=== PATIENT | female | born 1970 | race Caucasian/White ===

== ENCOUNTER 2017-03-31 05:14 | Emergency (ER) | payer OTHER ==
[~2017-03-31] VITALS: Ht 160 cm; Wt 79.7 kg
[~2017-03-31 05:14] MED LIST: ADVAIR HFA120 INHAL1 IH; ALBUTEROL; AMILORIDE HCL5 MG PO; ASPIR 8181 M1 PO; ATIVAN0.5 MG PO; AZITHROMYCIN250 MG1 PO; B-121000 MC2 PO; BACTRIM,SEPT1 TABLET PO; BENADRYL25 MG PO; BENZTROPINE ME0.5 MG PO; Benadryl PO; CEFTIN500 MG PO; CENTRUM SILVER1 EAC3 PO; CEPHALEXIN500 MG PO; CLONAZEPAM0.5 MG PO; CLONAZEPAM1 MG PO; COGENTIN1 MG PO; DAILY VALUE1 EACH PO; DEPAKOTE ER500 MG PO; DIFLUCAN150 MG PO; DIVALPROEX SOD500 M1 PO; DIVALPROEX SOD500 MG PO; ECONAZOLE NITRA15 GM TP; FISH OIL 1,0001 EA11 PO; FISH OIL500 MG PO; FLONASE16 G1 BOTH NARES; FLUOXETINE HCL20 MG PO; FLUTICASONE PRO16 GM BOTH NARES; GABAPENTIN100 MG PO; GAS-X ULTRA ST180 MG PO; GEODON60 MG PO; GEODON80 MG PO; HALDOL DEC100 MG/1 M IM; HALDOL10 MG PO; HALDOL5 MG PO; HALOPERIDOL10 MG PO; HYDROCHLOROTHIA25 MG PO; HYDROCODON-ACE1 EAC7 PO; Inderal PO; KEFLEX500 MG PO; KLONOPIN0.5 M1 PO; KLONOPIN1 MG PO; LISINOPRIL-HCT1 EACH PO; LITHIUM CARBON300 M1 PO; LITHIUM CARBON300 M2 PO; LITHIUM CARBON300 MG PO; LITHIUM CARBON600 MG PO; LITHOBID300 MG PO; LOPRESSOR25 MG PO; LOVENOX150 MG/1 M SC; LUNESTA1 MG PO; LYRICA50 MG PO; MELATONIN1 MG PO; METOPROLOL SUCC25 MG PO; MOBIC15 MG PO; MOTRIN600 MG PO; MOTRIN800 MG PO; Miralax, Glycolax PO; NABI650T PO; NAPROXEN500 MG PO; NEXIUM20 MG PO; NEXIUM40 MG PO; NYSTATIN15 GM TP; Neurontin PO; OLANZAPINE10 MG PO; OXYBUTYNIN; PANTOPRAZOLE SO40 MG PO; PERCOCET 10-321 EACH PO; PERCOCET 10/1 TABLET PO; PERCOCET 5-3251 EACH PO; PERCOCET 5/31 TABLET PO; PREDNISONE50 MG PO; PROAIR HFA8.5 GM IH; PROTONIX40 MG PO; Percocet 5/325,Endoc PO; QUETIAPINE FUM200 MG PO; SEROQUEL; SEROQUEL PO; SEROQUEL200 MG PO; SEROQUEL300 MG PO; SYMBICORT; SYMBICORT60 INHALAT; SYMBICORT60 INHALAT IH; TERBINAFINE HC250 MG PO; TOPROL XL25 MG PO; TOPROL XL50 MG PO; TRAMADOL HCL50 MG PO; TYLENOL ARTHRI650 MG PO; TYLENOL WITH C1 EACH PO; VENTOLIN HFA18 GM IH; VISTARIL25 M1 PO; XARELTO10 MG PO; XARELTO15 MG PO; XARELTO20 MG PO; ZESTRIL,PRINIVIL5 MG PO; ZIPRASIDONE HCL80 MG PO; ZITHROMAX Z-PA250 MG PO; ZOFRAN4 MG PO; ZOVIRAX5 GM TP; ZYDIS PO; ZYPREXA ZYDIS20 MG PO; ZYPREXA ZYDIS5 MG PO; ZYPREXA10 M1 PO; ZYPREXA10 MG PO; ZYPREXA15 MG PO; ZYPREXA20 MG PO
[2017-03-31 05:57] LABS: HEMATOCRIT 40.7 % (36.0-46.0); MCH 31.1 PG (29.0-34.0); MCHC 33.7 G/DL (30.0-36.0); MCV 92.5 FL (83-99); PLATELET COUNT 302 K/uL (156-360); RBC DIS.WIDTH-CV 12.9 % (11.8-14.6); RBC DIS.WIDTH-SD 43.7 % (39-53); WHITE BLOOD COUNT 11.1 K/uL (4.1-10.2)
[2017-03-31 05:58] LABS: ADD MIUA? NO; BILIRUBIN NEGATIVE; BLOOD NEGATIVE; COLOR COLORLESS ((YELLOW)); GLUCOSE (STRIP) NEGATIVE; KETONES NEGATIVE; LEUKOCYTES NEGATIVE; NITRITE NEGATIVE; PROTEIN (STRIP) NEGATIVE; SPECIFIC GRAVITY 1.002 (1.000-1.030); UCUL ADDED? NO; UROBILINOGEN 0.2 MG/DL (0.2-1.0)
[2017-03-31 06:12] LABS: CHLORIDE 106 mEq/L (99-109); POTASSIUM 3.9 mEq/L (3.7-5.4); SODIUM 139 mEq/L (136-147)
[2017-03-31 06:14] LABS: GLUCOSE 74 mg/dL (70-99)
[2017-03-31 06:15] LABS: ANION GAP 8 MEQ/L (2-14)
[2017-03-31 06:16] LABS: TOTAL BILIRUBIN 0.3 mg/dL (0.0-1.0)
[2017-03-31 06:18] LABS: ALKALINE PHOSPHATASE 102 IU/L (3-129); GFR ESTIMATE (CALCULATED) > 59 mL/min/
[2017-03-31 06:19] LABS: UREA NITROGEN (BUN) 13 mg/dL (9-23)
[2017-03-31 06:26] LABS: QUANTITATIVE HCG < 4.0 MIU/ML
[2017-03-31] MEDS ORDERED: VENTOLIN HFA18 GM IH (07:18)
[2017-03-31 07:36] VITALS: BP 142/102
== END 2017-03-31 07:37 | disposition home or self-care (01) ==
LOC: EME 05:14
DX: R32 Unspecified urinary incontinence (principal); I10 Essential (primary) hypertension; K21.9 Gastro-esophageal reflux disease without esophagitis; Z86.718 Personal history of other venous thrombosis and embolism; Z79.01 Long term (current) use of anticoagulants; Z86.711 Personal history of pulmonary embolism; F17.200 Nicotine dependence, unspecified, uncomplicated
CPT/HCPCS: 80053; 80164; 81003; 84702; 85027; 99281; 99284

== ENCOUNTER 2017-04-05 11:13 | Emergency (ER) | payer OTHER ==
[~2017-04-05] VITALS: Ht 160 cm; Wt 77.2 kg
[2017-04-05] MEDS ORDERED: TESSALON PERLE100 MG PO (11:47)
[2017-04-05 11:59] VITALS: BP 121/95
== END 2017-04-05 12:23 | disposition home or self-care (01) ==
LOC: EME 11:13
DX: R05 Cough (principal); M79.1 Myalgia; K21.9 Gastro-esophageal reflux disease without esophagitis; I10 Essential (primary) hypertension; J44.9 Chronic obstructive pulmonary disease, unspecified; F17.200 Nicotine dependence, unspecified, uncomplicated
CPT/HCPCS: 99281; 99284

== ENCOUNTER 2017-04-07 00:02 | Inpatient (IN) | payer OTHER ==
[~2017-04-07] VITALS: Ht 160 cm; Wt 78.8 kg
[~2017-04-07 00:02] MED LIST changes: +TESSALON PERLE100 MG PO
[2017-04-07 01:42] LABS: HEMATOCRIT 40.7 % (36.0-46.0); MCH 30.6 PG (29.0-34.0); MCHC 32.4 G/DL (30.0-36.0); MCV 94.4 FL (83-99); MEAN PLAT.VOLUME 9.2 uM^3 (9.5-12.4); PLATELET COUNT 291 K/uL (156-360); RBC DIS.WIDTH-SD 45.2 % (39-53); RED BLOOD COUNT 4.31 M/uL (3.80-5.20); WHITE BLOOD COUNT 7.9 K/uL (4.1-10.2)
[2017-04-07 01:53] LABS: ADD MIUA? NO; BILIRUBIN NEGATIVE; BLOOD NEGATIVE; COLOR COLORLESS ((YELLOW)); GLUCOSE (STRIP) NEGATIVE; KETONES NEGATIVE; LEUKOCYTES NEGATIVE; NITRITE NEGATIVE; PROTEIN (STRIP) NEGATIVE; SPECIFIC GRAVITY 1.004 (1.000-1.030); UCUL ADDED? NO; UROBILINOGEN 0.2 MG/DL (0.2-1.0)
[2017-04-07 01:54] LABS: CHLORIDE 108 mEq/L (99-109); POTASSIUM 3.8 mEq/L (3.7-5.4); SODIUM 144 mEq/L (136-147)
[2017-04-07 01:56] LABS: GLUCOSE 90 mg/dL (70-99)
[2017-04-07 01:57] LABS: ANION GAP 9 MEQ/L (2-14)
[2017-04-07 01:59] LABS: SERUM ETHYL ALCOHOL < 10 mg/dL
[2017-04-07 02:00] LABS: GFR ESTIMATE (CALCULATED) > 59 mL/min/
[2017-04-07 02:01] LABS: UREA NITROGEN (BUN) 16 mg/dL (9-23)
[2017-04-07 02:02] LABS: AMPHETAMINE NEGATIVE (500 ng/mL); BARBITURATES NEGATIVE (200 ng/mL); BENZODIAZEPINES NEGATIVE (150 ng/mL); COCAINE NEGATIVE (150 ng/mL); INTERNAL CONTROLS VALID? YES; METHADONE NEGATIVE (200 ng/mL); METHAMPHETAMINE NEGATIVE (500 ng/mL); OPIATES (MORPHINE) NEGATIVE (100 ng/mL); OXYCODONE NEGATIVE (100 ng/mL); PHENCYCLIDINE NEGATIVE (25 ng/mL); PROPOXYPHENE NEGATIVE (300 ng/mL); THC CANNABINOIDS NEGATIVE (50 ng/mL); TRICYCLIC ANTIDEPRESSANTS NEGATIVE (300 ng/mL)
[2017-04-07 02:04] LABS: TROP-I INTERPRETATION NEGATIVE; TROPONIN-I < 0.01 ng/mL (0.0-0.30)
[2017-04-07 02:08] LABS: QUANTITATIVE HCG < 4.0 MIU/ML
[2017-04-07] MEDS ORDERED: DEPAKOTE500 MG PO (04:19)
[2017-04-07 05:28] VITALS: BP 132/87
[2017-04-07 07:40] VITALS: BP 143/69
[2017-04-07 15:18] VITALS: BP 135/71
[2017-04-08 07:40] VITALS: BP 151/93
[2017-04-08 15:41] VITALS: BP 123/91
[2017-04-09 07:47] VITALS: BP 135/92
[2017-04-09 15:22] VITALS: BP 157/88
[2017-04-10 07:33] VITALS: BP 136/90
[2017-04-10 15:37] VITALS: BP 150/93
[2017-04-11 07:20] VITALS: BP 134/68
[2017-04-11 15:24] VITALS: BP 134/97
[2017-04-12 10:11] VITALS: BP 127/77
[2017-04-12 15:10] VITALS: BP 150/82
[2017-04-13 07:44] VITALS: BP 134/83
[2017-04-13 15:31] VITALS: BP 136/93
[2017-04-14 07:47] VITALS: BP 131/76
[2017-04-14 15:26] VITALS: BP 143/100
[2017-04-15 07:32] VITALS: BP 136/90
[2017-04-15 15:26] VITALS: BP 140/90
[2017-04-16 07:31] VITALS: BP 164/100
[2017-04-16 09:32] VITALS: BP 145/99
[2017-04-16 15:42] VITALS: BP 133/81
[2017-04-17 07:49] VITALS: BP 131/79
[2017-04-17] MEDS ORDERED: VENTOLIN HFA18 GM IH (09:26)
[2017-04-17] MEDS ORDERED: XARELTO20 MG PO (09:26)
[2017-04-17] MEDS ORDERED: DIVALPROEX SOD500 MG PO (09:26)
[2017-04-17] MEDS ORDERED: CHLORPROMAZINE50 MG PO ×2 (09:26)
[2017-04-17] MEDS ORDERED: FLONASE16 G1 BOTH NARES (09:26)
[2017-04-17] MEDS ORDERED: ZIPRASIDONE HCL60 MG PO (09:26)
[2017-04-17] MEDS ORDERED: ADVAIR HFA120 INHALA IH (09:26)
== END 2017-04-17 10:41 | disposition home or self-care (01) | DRG 885 ==
LOC: EME 00:02 → 1WEST 02:44 → EDOF 02:44 → 1WEST 04:41
PROVIDERS: Emergency Medicine
DX: F30.2 Manic episode, severe with psychotic symptoms (principal); F41.9 Anxiety disorder, unspecified; F41.0 Panic disorder [episodic paroxysmal anxiety]; R07.89 Other chest pain; J44.9 Chronic obstructive pulmonary disease, unspecified; I10 Essential (primary) hypertension; E66.3 Overweight; Z68.30 Body mass index [BMI] 30.0-30.9, adult; Z91.14 Patient's other noncompliance with medication regimen
CPT/HCPCS: 71010; 73630; 80048; 80164; 81003; 84484; 84702; 85027; 90839; 93005; 94640; 94640 76; 94760; 97150 GO; 97166 GO; 99202; 99281; 99285; G0480; J3486; Q0177

== ENCOUNTER 2017-05-08 14:24 | Emergency (ER) | payer OTHER ==
[~2017-05-08] VITALS: Ht 160 cm; Wt 82.9 kg
[~2017-05-08 14:24] MED LIST changes: +ADVAIR HFA120 INHALA IH; +CHLORPROMAZINE50 MG PO; +DEPAKOTE500 MG PO; +ZIPRASIDONE HCL60 MG PO
[2017-05-08 15:34] LABS: HEMATOCRIT 39.2 % (36.0-46.0); MCH 30.9 PG (29.0-34.0); MCHC 32.9 G/DL (30.0-36.0); PLATELET COUNT 207 K/uL (156-360); RBC DIS.WIDTH-CV 11.9 % (11.8-14.6); RBC DIS.WIDTH-SD 40.4 % (39-53); RED BLOOD COUNT 4.17 M/uL (3.80-5.20); WHITE BLOOD COUNT 9.7 K/uL (4.1-10.2)
[2017-05-08 15:51] LABS: CHLORIDE 104 mEq/L (99-109); POTASSIUM 3.9 mEq/L (3.7-5.4); SODIUM 134 mEq/L (136-147)
[2017-05-08 15:53] LABS: GLUCOSE 151 mg/dL (70-99)
[2017-05-08 15:54] LABS: ANION GAP 8 MEQ/L (2-14)
[2017-05-08 15:57] LABS: GFR ESTIMATE (CALCULATED) > 59 mL/min/; UREA NITROGEN (BUN) 21 mg/dL (9-23)
[2017-05-08 16:01] LABS: TROP-I INTERPRETATION NEGATIVE; TROPONIN-I < 0.01 ng/mL (0.0-0.30)
[2017-05-08] MEDS ORDERED: MOTRIN600 MG PO (20:21)
[2017-05-08 20:32] VITALS: BP 146/104
== END 2017-05-08 20:32 | disposition home or self-care (01) ==
LOC: EME 14:24
DX: S93.602A Unspecified sprain of left foot, initial encounter (principal); G89.29 Other chronic pain; M54.9 Dorsalgia, unspecified; F31.9 Bipolar disorder, unspecified; F17.200 Nicotine dependence, unspecified, uncomplicated
CPT/HCPCS: 71020; 73630; 80048; 81003; 84484; 85027; 99281; 99284

== ENCOUNTER 2017-05-09 19:45 | Inpatient (IN) | payer OTHER ==
[~2017-05-09] VITALS: Ht 160 cm; Wt 81.1 kg
[2017-05-09 20:22] LABS: BASOPHIL COUNT 0.1 K/uL (0-0.1); EOSINOPHIL (%) 6.2 % (0-5); EOSINOPHIL COUNT 0.6 K/uL (0-0.3); HEMATOCRIT 38.2 % (36.0-46.0); IMMATURE GRANULOCYTE (%) 0.6 % (0.0-0.7); IMMATURE GRANULOCYTE COUNT 0.1 K/uL; INSTRUMENT ABS NEUTROPHIL CT 6.3 K/uL; LYMPHOCYTE COUNT 1.9 K/uL (1.0-2.8); MCH 30.8 PG (29.0-34.0); MCHC 33.8 G/DL (30.0-36.0); MCV 91.2 FL (83-99); MEAN PLAT.VOLUME 9.1 uM^3 (9.5-12.4); MONOCYTE (%) 11.7 % (3-12); MONOCYTE COUNT 1.2 K/uL (0-0.8); NEUTROPHIL (%) 61.8 % (45-76); NEUTROPHIL COUNT 6.3 K/uL (1.8-6.4); PLATELET COUNT 230 K/uL (156-360); RBC DIS.WIDTH-CV 11.8 % (11.8-14.6); RBC DIS.WIDTH-SD 38.9 % (39-53); RED BLOOD COUNT 4.19 M/uL (3.80-5.20); WHITE BLOOD COUNT 10.1 K/uL (4.1-10.2)
[2017-05-09 20:34] LABS: CHLORIDE 103 mEq/L (99-109); POTASSIUM 4.1 mEq/L (3.7-5.4); SODIUM 135 mEq/L (136-147)
[2017-05-09 20:37] LABS: ANION GAP 9 MEQ/L (2-14)
[2017-05-09 20:39] LABS: GLUCOSE 87 mg/dL (70-99); SERUM ETHYL ALCOHOL < 10 mg/dL
[2017-05-09 20:40] LABS: GFR ESTIMATE (CALCULATED) 52 mL/min/
[2017-05-09 20:42] LABS: UREA NITROGEN (BUN) 20 mg/dL (9-23)
[2017-05-09 20:43] LABS: SALICYLATE < 5.0 MG/DL (15-30)
[2017-05-09 22:18] LABS: INTERNAL CONTROL VALID? YES
[2017-05-09 22:27] LABS: AMPHETAMINE NEGATIVE (500 ng/mL); BARBITURATES NEGATIVE (200 ng/mL); BENZODIAZEPINES NEGATIVE (150 ng/mL); COCAINE NEGATIVE (150 ng/mL); INTERNAL CONTROLS VALID? YES; METHADONE NEGATIVE (200 ng/mL); METHAMPHETAMINE NEGATIVE (500 ng/mL); OPIATES (MORPHINE) NEGATIVE (100 ng/mL); OXYCODONE NEGATIVE (100 ng/mL); PHENCYCLIDINE NEGATIVE (25 ng/mL); PROPOXYPHENE NEGATIVE (300 ng/mL); THC CANNABINOIDS NEGATIVE (50 ng/mL); TRICYCLIC ANTIDEPRESSANTS NEGATIVE (300 ng/mL)
[2017-05-10] MEDS ORDERED: VENTOLIN HFA18 GM IH (15:38)
[2017-05-10] MEDS ORDERED: DIVALPROEX SOD500 MG PO ×2 (15:40→15:41)
[2017-05-10] MEDS ORDERED: XARELTO20 MG PO (15:40)
[2017-05-10] MEDS ORDERED: CHLORPROMAZINE200 MG PO (15:43)
[2017-05-10] MEDS ORDERED: ADVAIR HFA120 INHALA IH (15:44)
[2017-05-10] MEDS ORDERED: ZIPRASIDONE HCL60 MG PO (15:46)
[2017-05-10] MEDS ORDERED: FLUTICASONE PRO16 GM BOTH NARES (15:46)
[2017-05-10] MEDS ORDERED: IBUPROFEN600 MG PO (15:48)
[2017-05-10 16:02] VITALS: BP 135/85
[2017-05-11 07:43] VITALS: BP 124/91
[2017-05-11 15:16] VITALS: BP 149/92
[2017-05-12 07:57] VITALS: BP 156/78
[2017-05-12 15:26] VITALS: BP 147/69
[2017-05-13 07:54] VITALS: BP 160/92
[2017-05-13 16:24] VITALS: BP 140/95
[2017-05-14 07:41] VITALS: BP 142/93
[2017-05-14 15:57] VITALS: BP 135/96
[2017-05-15 07:42] VITALS: BP 156/90
[2017-05-15 15:15] VITALS: BP 152/79
[2017-05-16 07:44] VITALS: BP 133/88
[2017-05-16 15:19] VITALS: BP 135/92
[2017-05-17 07:31] VITALS: BP 141/85
[2017-05-17 15:32] VITALS: BP 164/90
[2017-05-18 08:15] VITALS: BP 147/93
[2017-05-18 15:35] VITALS: BP 89/53
[2017-05-19 07:29] VITALS: BP 142/91
[2017-05-19 15:26] VITALS: BP 143/72
[2017-05-20 07:53] VITALS: BP 128/73
[2017-05-20 16:16] VITALS: BP 140/51
[2017-05-21 07:33] VITALS: BP 151/98
[2017-05-21 15:20] VITALS: BP 167/97
[2017-05-22 07:59] VITALS: BP 126/81
[2017-05-22] MEDS ORDERED: OLANZAPINE10 MG PO (09:47)
[2017-05-22] MEDS ORDERED: TOPIRAMATE25 MG PO (09:47)
[2017-05-22] MEDS ORDERED: DIVALPROEX SOD500 M1 PO (09:47)
[2017-05-22] MEDS ORDERED: CLONAZEPAM1 MG PO (09:47)
== END 2017-05-22 12:14 | disposition home or self-care (01) | DRG 885 ==
LOC: EME 19:45 → 1WEST 05-10 12:25 → EDOF 05-10 12:25 → 1WEST 05-10 15:47
PROVIDERS: Emergency Medicine
DX: F31.2 Bipolar disorder, current episode manic severe with psychotic features (principal); J44.9 Chronic obstructive pulmonary disease, unspecified; Z86.711 Personal history of pulmonary embolism; Z86.72 Personal history of thrombophlebitis; Z91.19 Patient's noncompliance with other medical treatment and regimen
CPT/HCPCS: 71020; 73630; 80048; 80164; 81003; 84484; 84703; 85025; 85027; 90837; 94640; 94640 76; 97150 GO; 97166 GO; 99202; 99281; 99284; 99285; G0480; J1630; J3486

== ENCOUNTER 2017-05-29 12:27 | Inpatient (IN) | payer OTHER ==
[~2017-05-29] VITALS: Ht 160 cm; Wt 80.8 kg
[~2017-05-29 12:27] MED LIST changes: +CHLORPROMAZINE200 MG PO; +IBUPROFEN600 MG PO; +TOPIRAMATE25 MG PO
[2017-05-29 13:18] LABS: ADD MIUA? NO; BILIRUBIN NEGATIVE; BLOOD NEGATIVE; COLOR STRAW ((YELLOW)); GLUCOSE (STRIP) NEGATIVE; KETONES NEGATIVE; LEUKOCYTES NEGATIVE; NITRITE NEGATIVE; PROTEIN (STRIP) NEGATIVE; SPECIFIC GRAVITY 1.003 (1.000-1.030); UROBILINOGEN 0.2 MG/DL (0.2-1.0)
[2017-05-29 13:18] LABS: BASOPHIL COUNT 0.1 K/uL (0-0.1); EOSINOPHIL (%) 5.5 % (0-5); EOSINOPHIL COUNT 0.5 K/uL (0-0.3); HEMATOCRIT 37.5 % (36.0-46.0); IMMATURE GRANULOCYTE (%) 0.4 % (0.0-0.7); LYMPHOCYTE COUNT 2.3 K/uL (1.0-2.8); MCH 31.6 PG (29.0-34.0); MCHC 34.4 G/DL (30.0-36.0); MCV 91.9 FL (83-99); MEAN PLAT.VOLUME 9.1 uM^3 (9.5-12.4); MONOCYTE (%) 6.9 % (3-12); MONOCYTE COUNT 0.6 K/uL (0-0.8); NEUTROPHIL (%) 59.1 % (45-76); PLATELET COUNT 213 K/uL (156-360); RBC DIS.WIDTH-CV 12.4 % (11.8-14.6); RED BLOOD COUNT 4.08 M/uL (3.80-5.20); WHITE BLOOD COUNT 8.5 K/uL (4.1-10.2)
[2017-05-29 13:26] LABS: CHLORIDE 113 mEq/L (99-109); POTASSIUM 4.4 mEq/L (3.7-5.4); SODIUM 140 mEq/L (136-147)
[2017-05-29 13:27] LABS: GLUCOSE 120 mg/dL (70-99)
[2017-05-29 13:28] LABS: AMPHETAMINE NEGATIVE (500 ng/mL); BARBITURATES NEGATIVE (200 ng/mL); BENZODIAZEPINES NEGATIVE (150 ng/mL); COCAINE NEGATIVE (150 ng/mL); INTERNAL CONTROLS VALID? YES; METHADONE NEGATIVE (200 ng/mL); METHAMPHETAMINE NEGATIVE (500 ng/mL); OPIATES (MORPHINE) NEGATIVE (100 ng/mL); OXYCODONE NEGATIVE (100 ng/mL); PHENCYCLIDINE NEGATIVE (25 ng/mL); PROPOXYPHENE NEGATIVE (300 ng/mL); THC CANNABINOIDS NEGATIVE (50 ng/mL); TRICYCLIC ANTIDEPRESSANTS NEGATIVE (300 ng/mL)
[2017-05-29 13:29] LABS: ANION GAP 5 MEQ/L (2-14)
[2017-05-29 13:30] LABS: SERUM ETHYL ALCOHOL < 10 mg/dL
[2017-05-29 13:31] LABS: GFR ESTIMATE (CALCULATED) > 59 mL/min/
[2017-05-29 13:32] LABS: UREA NITROGEN (BUN) 20 mg/dL (9-23)
[2017-05-29 16:08] VITALS: BP 159/87
[2017-05-29 16:09] VITALS: BP 159/87
[2017-05-29] MEDS ORDERED: TYLENOL ARTHRI650 MG PO (16:25)
[2017-05-30 07:25] VITALS: BP 141/68
[2017-05-30 15:33] VITALS: BP 167/89
[2017-05-30 19:54] VITALS: BP 146/91
[2017-05-31 01:48] LABS: POINT-OF-CARE METER ID UU14188576; POINT-OF-CARE USER ID BHSSMG
[2017-05-31 07:58] VITALS: BP 137/83
[2017-05-31 15:45] VITALS: BP 123/81
[2017-06-01 07:45] VITALS: BP 142/82
[2017-06-01] MEDS ORDERED: TYLENOL ARTHRI650 MG PO (15:45)
[2017-06-02 07:53] VITALS: BP 137/88
[2017-06-03 07:18] VITALS: BP 123/75
[2017-06-03 15:24] VITALS: BP 138/79
[2017-06-04 07:27] VITALS: BP 121/72
[2017-06-04 16:16] VITALS: BP 133/91
[2017-06-05 07:51] VITALS: BP 129/80
[2017-06-06 07:38] VITALS: BP 130/72
[2017-06-06] MEDS ORDERED: OLANZAPINE10 MG PO (11:01)
[2017-06-06] MEDS ORDERED: CLONAZEPAM1 MG PO (11:01)
[2017-06-06] MEDS ORDERED: TOPIRAMATE25 MG PO (11:01)
[2017-06-06] MEDS ORDERED: DIVALPROEX SOD500 M1 PO (11:01)
== END 2017-06-06 11:56 | disposition home or self-care (01) | DRG 885 ==
LOC: EME 12:27 → 1WEST 13:55 → EDOF 13:55 → 1WEST 15:57
PROVIDERS: Emergency Medicine; Psychiatry & Neurology Psychiatry
DX: F31.2 Bipolar disorder, current episode manic severe with psychotic features (principal); J44.9 Chronic obstructive pulmonary disease, unspecified; E66.9 Obesity, unspecified; Z86.711 Personal history of pulmonary embolism; Z86.72 Personal history of thrombophlebitis; Z68.31 Body mass index [BMI] 31.0-31.9, adult; Z91.14 Patient's other noncompliance with medication regimen; Z79.01 Long term (current) use of anticoagulants
CPT/HCPCS: 80048; 81003; 82948; 85025; 90837; 94640; 94640 76; 97150 GO; 97166 GO; 99202; 99281; 99285; G0480

== ENCOUNTER 2017-07-09 14:51 | Emergency (ER) | payer OTHER ==
[~2017-07-09] VITALS: Ht 160 cm; Wt 98.8 kg
[2017-07-09 14:59] VITALS: BP 155/95
[2017-07-09 17:06] LABS: AMPHETAMINE NEGATIVE (500 ng/mL); BARBITURATES NEGATIVE (200 ng/mL); BENZODIAZEPINES NEGATIVE (150 ng/mL); COCAINE NEGATIVE (150 ng/mL); INTERNAL CONTROLS VALID? YES; METHADONE NEGATIVE (200 ng/mL); METHAMPHETAMINE NEGATIVE (500 ng/mL); OPIATES (MORPHINE) NEGATIVE (100 ng/mL); OXYCODONE NEGATIVE (100 ng/mL); PHENCYCLIDINE NEGATIVE (25 ng/mL); PROPOXYPHENE NEGATIVE (300 ng/mL); THC CANNABINOIDS NEGATIVE (50 ng/mL); TRICYCLIC ANTIDEPRESSANTS NEGATIVE (300 ng/mL)
[2017-07-09] MEDS ORDERED: VENTOLIN HFA18 GM IH (18:03)
[2017-07-09] MEDS ORDERED: SYMBICORT60 INHALAT IH (18:05)
== END 2017-07-09 18:25 | disposition home or self-care (01) ==
LOC: EME 14:51
PROVIDERS: Emergency Medicine
DX: J44.1 Chronic obstructive pulmonary disease with (acute) exacerbation (principal); G89.29 Other chronic pain; R10.9 Unspecified abdominal pain; R07.9 Chest pain, unspecified; M79.673 Pain in unspecified foot; I45.10 Unspecified right bundle-branch block; Z79.01 Long term (current) use of anticoagulants
CPT/HCPCS: 71020; 80048; 84484; 84702; 85027; 93005; 94644; 99281; 99285

== ENCOUNTER 2017-07-17 15:02 | Inpatient (IN) | payer OTHER ==
[~2017-07-17] VITALS: Ht 160 cm; Wt 80.6 kg
[2017-07-17 17:46] LABS: ADD MIUA? NO; BILIRUBIN NEGATIVE; BLOOD NEGATIVE; COLOR COLORLESS ((YELLOW)); GLUCOSE (STRIP) NEGATIVE; KETONES NEGATIVE; LEUKOCYTES NEGATIVE; NITRITE NEGATIVE; PROTEIN (STRIP) NEGATIVE; SPECIFIC GRAVITY 1.003 (1.000-1.030); UCUL ADDED? NO; UROBILINOGEN 0.2 MG/DL (0.2-1.0)
[2017-07-17 17:47] LABS: HEMATOCRIT 42.8 % (36.0-46.0); MCH 30.8 PG (29.0-34.0); MCHC 33.4 G/DL (30.0-36.0); MEAN PLAT.VOLUME 8.9 uM^3 (9.5-12.4); PLATELET COUNT 293 K/uL (156-360); RBC DIS.WIDTH-CV 12.9 % (11.8-14.6); RBC DIS.WIDTH-SD 42.7 % (39-53); RED BLOOD COUNT 4.65 M/uL (3.80-5.20); WHITE BLOOD COUNT 10.8 K/uL (4.1-10.2)
[2017-07-17 17:58] LABS: CHLORIDE 108 mEq/L (99-109); POTASSIUM 4.5 mEq/L (3.7-5.4); SODIUM 142 mEq/L (136-147)
[2017-07-17 17:59] LABS: GLUCOSE 102 mg/dL (70-99)
[2017-07-17 18:01] LABS: ANION GAP 10 MEQ/L (2-14)
[2017-07-17 18:03] LABS: GFR ESTIMATE (CALCULATED) > 59 mL/min/; SERUM ETHYL ALCOHOL < 10 mg/dL
[2017-07-17 18:03] LABS: AMPHETAMINE NEGATIVE (500 ng/mL); BARBITURATES NEGATIVE (200 ng/mL); BENZODIAZEPINES NEGATIVE (150 ng/mL); COCAINE NEGATIVE (150 ng/mL); INTERNAL CONTROLS VALID? YES; METHADONE NEGATIVE (200 ng/mL); METHAMPHETAMINE NEGATIVE (500 ng/mL); OPIATES (MORPHINE) NEGATIVE (100 ng/mL); OXYCODONE NEGATIVE (100 ng/mL); PHENCYCLIDINE NEGATIVE (25 ng/mL); PROPOXYPHENE NEGATIVE (300 ng/mL); THC CANNABINOIDS NEGATIVE (50 ng/mL); TRICYCLIC ANTIDEPRESSANTS NEGATIVE (300 ng/mL)
[2017-07-17 18:04] LABS: UREA NITROGEN (BUN) 13 mg/dL (9-23)
[2017-07-17 19:35] VITALS: BP 186/109
[2017-07-17] MEDS ORDERED: GEODON80 MG PO (19:53)
[2017-07-17 20:15] VITALS: BP 186/109
[2017-07-18 08:36] VITALS: BP 153/95
[2017-07-18 13:07] VITALS: BP 139/80
[2017-07-18] MEDS ORDERED: HALDOL DEC100 MG/1 M IM (14:03)
[2017-07-18 15:46] VITALS: BP 146/96
[2017-07-19 07:46] VITALS: BP 154/91
[2017-07-19] MEDS ORDERED: TEGRETOL200 MG PO (08:26)
[2017-07-19] MEDS ORDERED: HALDOL DEC100 MG/1 M IM (08:29)
[2017-07-19 15:35] VITALS: BP 130/90
[2017-07-20 07:31] VITALS: BP 167/77
[2017-07-20 15:26] VITALS: BP 138/84
[2017-07-21 07:45] VITALS: BP 150/88
[2017-07-21] MEDS ORDERED: OXCARBAZEPINE300 MG PO (10:41)
[2017-07-21] MEDS ORDERED: GEODON20 MG PO (10:41)
== END 2017-07-21 11:26 | disposition home or self-care (01) | DRG 885 ==
LOC: EME 15:02 → EDOF 18:08 → 1WEST 18:08 → ENRESERV 19:31 → 1WEST 19:32
PROVIDERS: Emergency Medicine
DX: F31.2 Bipolar disorder, current episode manic severe with psychotic features (principal); J44.9 Chronic obstructive pulmonary disease, unspecified; Z86.711 Personal history of pulmonary embolism
CPT/HCPCS: 71010; 74000; 80048; 81003; 85027; 90837; 94640; 94640 76; 97150 GO; 97165 GO; 99202; 99281; 99284; G0480; J1630

== ENCOUNTER 2017-07-22 22:31 | Inpatient (IN) | payer OTHER ==
[~2017-07-22] VITALS: Ht 160 cm; Wt 80.0 kg
[~2017-07-22 22:31] MED LIST changes: +GEODON20 MG PO; +OXCARBAZEPINE300 MG PO; +TEGRETOL200 MG PO
[2017-07-23 00:07] LABS: ADD MIUA? YES; BILIRUBIN NEGATIVE; BLOOD LARGE; COLOR YELLOW ((YELLOW)); GLUCOSE (STRIP) NEGATIVE; KETONES NEGATIVE; LEUKOCYTES NEGATIVE; NITRITE NEGATIVE; PROTEIN (STRIP) 30; SPECIFIC GRAVITY 1.003 (1.000-1.030); UROBILINOGEN 0.2 MG/DL (0.2-1.0)
[2017-07-23 00:10] LABS: BACTERIA 1+ /HPF; EPITHELIAL CELLS RARE /HPF; MUCUS NONE SEEN /LPF; RED BLOOD CELLS 0-5 /HPF (0-5); WHITE BLOOD CELLS 0-5 /HPF (0-5)
[2017-07-23 00:22] LABS: AMPHETAMINE NEGATIVE (500 ng/mL); BARBITURATES NEGATIVE (200 ng/mL); BENZODIAZEPINES NEGATIVE (150 ng/mL); COCAINE NEGATIVE (150 ng/mL); METHADONE NEGATIVE (200 ng/mL); METHAMPHETAMINE NEGATIVE (500 ng/mL); OPIATES (MORPHINE) NEGATIVE (100 ng/mL); OXYCODONE NEGATIVE (100 ng/mL); PHENCYCLIDINE NEGATIVE (25 ng/mL); PROPOXYPHENE NEGATIVE (300 ng/mL); THC CANNABINOIDS NEGATIVE (50 ng/mL); TRICYCLIC ANTIDEPRESSANTS NEGATIVE (300 ng/mL)
[2017-07-23 00:23] LABS: INTERNAL CONTROLS VALID? YES
[2017-07-23 00:52] LABS: HEMATOCRIT 42.9 % (36.0-46.0); MCH 30.7 PG (29.0-34.0); MCHC 33.8 G/DL (30.0-36.0); MCV 90.9 FL (83-99); MEAN PLAT.VOLUME 9.3 uM^3 (9.5-12.4); PLATELET COUNT 261 K/uL (156-360); RBC DIS.WIDTH-CV 12.7 % (11.8-14.6); RBC DIS.WIDTH-SD 42.1 % (39-53); RED BLOOD COUNT 4.72 M/uL (3.80-5.20); WHITE BLOOD COUNT 10.9 K/uL (4.1-10.2)
[2017-07-23 01:02] LABS: CHLORIDE 105 mEq/L (99-109); SODIUM 141 mEq/L (136-147)
[2017-07-23 01:04] LABS: GLUCOSE 168 mg/dL (70-99)
[2017-07-23 01:05] LABS: ANION GAP 12 MEQ/L (2-14); POTASSIUM 3.5 mEq/L (3.7-5.4)
[2017-07-23 01:06] LABS: TOTAL BILIRUBIN 0.3 mg/dL (0.0-1.0)
[2017-07-23 01:08] LABS: ALKALINE PHOSPHATASE 114 IU/L (3-129); GFR ESTIMATE (CALCULATED) > 59 mL/min/
[2017-07-23 01:10] LABS: UREA NITROGEN (BUN) 11 mg/dL (9-23)
[2017-07-23 01:11] LABS: SALICYLATE < 5.0 MG/DL (15-30)
[2017-07-23 16:10] LABS: QUANTITATIVE HCG < 4.0 MIU/ML
[2017-07-24 12:57] VITALS: BP 141/98
[2017-07-24 13:16] VITALS: BP 141/98
[2017-07-24] MEDS ORDERED: TRILEPTAL300 MG PO (13:43)
[2017-07-24 15:37] VITALS: BP 140/107
[2017-07-25 07:49] VITALS: BP 153/82
[2017-07-25 16:10] VITALS: BP 148/75
[2017-07-26 15:38] VITALS: BP 145/99
[2017-07-27 07:49] VITALS: BP 148/79
[2017-07-27 15:50] VITALS: BP 148/93
[2017-07-28 07:47] VITALS: BP 132/80
[2017-07-28 15:24] VITALS: BP 145/106
[2017-07-29 07:55] VITALS: BP 131/93
[2017-07-29 15:25] VITALS: BP 137/85
[2017-07-30 07:56] VITALS: BP 135/94
[2017-07-30 15:20] VITALS: BP 171/111
[2017-07-31 07:38] VITALS: BP 131/92
[2017-07-31 16:15] VITALS: BP 156/90
[2017-07-31 21:46] VITALS: BP 159/92
[2017-08-01 07:37] VITALS: BP 146/82
[2017-08-01 15:46] VITALS: BP 157/103
[2017-08-02 07:27] VITALS: BP 135/86
[2017-08-02 16:12] VITALS: BP 138/105
[2017-08-03 08:01] VITALS: BP 126/84
[2017-08-03] MEDS ORDERED: ADVAIR HFA120 INHAL1 IH (10:10)
[2017-08-03] MEDS ORDERED: HALDOL DEC100 MG/1 M IM (10:10)
[2017-08-03] MEDS ORDERED: DIVALPROEX SOD500 M1 PO (10:10)
== END 2017-08-03 11:26 | disposition home or self-care (01) | DRG 885 ==
LOC: EME 22:31 → EDOF 07-24 11:14 → 1WEST 07-24 11:14 → ENRESERV 07-24 12:00 → 1WEST 07-24 12:37
PROVIDERS: Emergency Medicine
DX: F31.2 Bipolar disorder, current episode manic severe with psychotic features (principal); Z91.14 Patient's other noncompliance with medication regimen; R45.4 Irritability and anger; F41.0 Panic disorder [episodic paroxysmal anxiety]; H53.8 Other visual disturbances; R05 Cough; R06.2 Wheezing
CPT/HCPCS: 80053; 80164; 81003; 84702; 84702 GA; 85027; 90837; 94640; 94640 76; 97150 GO; 97166 GO; 99202; 99281; 99285; G0480; J1630; J1631; J2060; J3486

== ENCOUNTER 2017-08-03 21:29 | Emergency (ER) | payer OTHER ==
[~2017-08-03] VITALS: Ht 160 cm; Wt 83.0 kg
[~2017-08-03 21:29] MED LIST changes: +TRILEPTAL300 MG PO
[2017-08-03 22:46] LABS: AMPHETAMINE NEGATIVE (500 ng/mL); BARBITURATES NEGATIVE (200 ng/mL); BENZODIAZEPINES NEGATIVE (150 ng/mL); COCAINE NEGATIVE (150 ng/mL); INTERNAL CONTROLS VALID? YES; METHADONE NEGATIVE (200 ng/mL); METHAMPHETAMINE NEGATIVE (500 ng/mL); OPIATES (MORPHINE) NEGATIVE (100 ng/mL); OXYCODONE NEGATIVE (100 ng/mL); PHENCYCLIDINE NEGATIVE (25 ng/mL); PROPOXYPHENE NEGATIVE (300 ng/mL); THC CANNABINOIDS NEGATIVE (50 ng/mL); TRICYCLIC ANTIDEPRESSANTS NEGATIVE (300 ng/mL)
[2017-08-03 23:11] VITALS: BP 110/75
== END 2017-08-03 23:12 | disposition home or self-care (01) ==
LOC: EME 21:29
PROVIDERS: Emergency Medicine
DX: F32.9 Major depressive disorder, single episode, unspecified (principal); R10.9 Unspecified abdominal pain; Y04.0XXA Assault by unarmed brawl or fight, initial encounter; F17.200 Nicotine dependence, unspecified, uncomplicated
CPT/HCPCS: 80048; 84702; 85027; 90837; 99281; 99285; G0480

== ENCOUNTER 2017-08-15 14:25 | Inpatient (IN) | payer OTHER ==
[~2017-08-15] VITALS: Ht 160 cm; Wt 83.2 kg
[2017-08-15 15:06] LABS: EOSINOPHIL COUNT 0.2 K/uL (0-0.3); HEMATOCRIT 38.9 % (36.0-46.0); IMMATURE GRANULOCYTE (%) 0.7 % (0.0-0.7); IMMATURE GRANULOCYTE COUNT 0.1 K/uL; INSTRUMENT ABS NEUTROPHIL CT 5.2 K/uL; LYMPHOCYTE COUNT 1.9 K/uL (1.0-2.8); MCH 30.9 PG (29.0-34.0); MCHC 34.2 G/DL (30.0-36.0); MCV 90.5 FL (83-99); MEAN PLAT.VOLUME 8.7 uM^3 (9.5-12.4); MONOCYTE (%) 8.9 % (3-12); MONOCYTE COUNT 0.7 K/uL (0-0.8); NEUTROPHIL (%) 63.7 % (45-76); NEUTROPHIL COUNT 5.2 K/uL (1.8-6.4); PLATELET COUNT 264 K/uL (156-360); RBC DIS.WIDTH-CV 12.9 % (11.8-14.6); RBC DIS.WIDTH-SD 41.6 % (39-53); WHITE BLOOD COUNT 8.1 K/uL (4.1-10.2)
[2017-08-15 15:16] LABS: CHLORIDE 109 mEq/L (99-109); POTASSIUM 4.2 mEq/L (3.7-5.4); SODIUM 145 mEq/L (136-147)
[2017-08-15 15:18] LABS: GLUCOSE 108 mg/dL (70-99)
[2017-08-15 15:19] LABS: ANION GAP 10 MEQ/L (2-14)
[2017-08-15 15:20] LABS: TOTAL BILIRUBIN 0.3 mg/dL (0.0-1.0)
[2017-08-15 15:21] LABS: SERUM ETHYL ALCOHOL < 10 mg/dL
[2017-08-15 15:22] LABS: GFR ESTIMATE (CALCULATED) > 59 mL/min/
[2017-08-15 15:23] LABS: ALKALINE PHOSPHATASE 83 IU/L (3-129)
[2017-08-15 15:24] LABS: UREA NITROGEN (BUN) 12 mg/dL (9-23)
[2017-08-15 15:25] LABS: SALICYLATE < 5.0 MG/DL (15-30)
[2017-08-15 15:32] LABS: QUANTITATIVE HCG < 4.0 MIU/ML
[2017-08-15 19:49] LABS: AMPHETAMINE NEGATIVE (500 ng/mL); BARBITURATES NEGATIVE (200 ng/mL); BENZODIAZEPINES NEGATIVE (150 ng/mL); COCAINE NEGATIVE (150 ng/mL); INTERNAL CONTROLS VALID? YES; METHADONE NEGATIVE (200 ng/mL); METHAMPHETAMINE NEGATIVE (500 ng/mL); OPIATES (MORPHINE) NEGATIVE (100 ng/mL); OXYCODONE NEGATIVE (100 ng/mL); PHENCYCLIDINE NEGATIVE (25 ng/mL); PROPOXYPHENE NEGATIVE (300 ng/mL); THC CANNABINOIDS NEGATIVE (50 ng/mL); TRICYCLIC ANTIDEPRESSANTS NEGATIVE (300 ng/mL)
[2017-08-15 22:50] VITALS: BP 130/94
[2017-08-16 15:42] VITALS: BP 149/91
[2017-08-17 07:56] VITALS: BP 156/90
[2017-08-17 15:51] VITALS: BP 161/95
[2017-08-17 21:28] VITALS: BP 157/89
[2017-08-18 07:54] VITALS: BP 168/105
[2017-08-18 13:03] VITALS: BP 130/81
[2017-08-18 15:20] VITALS: BP 137/87
[2017-08-19 07:59] VITALS: BP 141/87
[2017-08-19 15:47] VITALS: BP 131/82
[2017-08-20 07:29] VITALS: BP 138/73
[2017-08-20 15:42] VITALS: BP 151/84
[2017-08-21] MEDS ORDERED: DEPAKOTE ER500 MG PO (12:55)
[2017-08-21] MEDS ORDERED: GEODON40 MG PO (12:56)
== END 2017-08-21 14:07 | disposition left against medical advice (07) | DRG 885 ==
LOC: EME 14:25 → 1WEST 20:14 → EDOF 20:14 → ENRESERV 22:25 → 1WEST 22:36
PROVIDERS: Emergency Medicine
DX: F31.2 Bipolar disorder, current episode manic severe with psychotic features (principal); R45.850 Homicidal ideations; Z91.14 Patient's other noncompliance with medication regimen; R40.0 Somnolence; F41.0 Panic disorder [episodic paroxysmal anxiety]; G43.909 Migraine, unspecified, not intractable, without status migrainosus; J45.909 Unspecified asthma, uncomplicated; F17.200 Nicotine dependence, unspecified, uncomplicated
CPT/HCPCS: 71020; 80053; 80164; 84702; 85025; 90837; 94640; 94640 76; 97150 GO; 97166 GO; 99202; 99281; 99285; G0480; J1630; J2060

== ENCOUNTER 2017-09-18 15:47 | Emergency (ER) | payer OTHER ==
[~2017-09-18] VITALS: Ht 160 cm; Wt 82.8 kg
[~2017-09-18 15:47] MED LIST changes: +GEODON40 MG PO
[2017-09-18 18:11] LABS: HEMATOCRIT 42.7 % (36.0-46.0); MCH 30.9 PG (29.0-34.0); MCV 93.4 FL (83-99); MEAN PLAT.VOLUME 9.2 uM^3 (9.5-12.4); PLATELET COUNT 258 K/uL (156-360); RBC DIS.WIDTH-CV 13.3 % (11.8-14.6); RED BLOOD COUNT 4.57 M/uL (3.80-5.20); WHITE BLOOD COUNT 9.9 K/uL (4.1-10.2)
[2017-09-18 18:19] LABS: CHLORIDE 105 mEq/L (99-109); POTASSIUM 4.9 mEq/L (3.7-5.4); SODIUM 139 mEq/L (136-147)
[2017-09-18 18:21] LABS: GLUCOSE 102 mg/dL (70-99)
[2017-09-18 18:23] LABS: ANION GAP 12 MEQ/L (2-14)
[2017-09-18 18:24] LABS: SERUM ETHYL ALCOHOL < 10 mg/dL
[2017-09-18 18:25] LABS: GFR ESTIMATE (CALCULATED) > 59 mL/min/
[2017-09-18 18:27] LABS: UREA NITROGEN (BUN) 8 mg/dL (9-23)
[2017-09-18 18:28] LABS: SALICYLATE < 5.0 MG/DL (15-30)
[2017-09-18 18:38] LABS: AMPHETAMINE NEGATIVE (500 ng/mL); BARBITURATES NEGATIVE (200 ng/mL); BENZODIAZEPINES NEGATIVE (150 ng/mL); COCAINE NEGATIVE (150 ng/mL); INTERNAL CONTROLS VALID? YES; METHADONE NEGATIVE (200 ng/mL); METHAMPHETAMINE NEGATIVE (500 ng/mL); OPIATES (MORPHINE) NEGATIVE (100 ng/mL); OXYCODONE NEGATIVE (100 ng/mL); PHENCYCLIDINE NEGATIVE (25 ng/mL); PROPOXYPHENE NEGATIVE (300 ng/mL); THC CANNABINOIDS NEGATIVE (50 ng/mL); TRICYCLIC ANTIDEPRESSANTS NEGATIVE (300 ng/mL)
[2017-09-19 01:57] VITALS: BP 139/88
== END 2017-09-19 02:15 ==
LOC: EME 15:47
PROVIDERS: Emergency Medicine
DX: R45.851 Suicidal ideations (principal); F31.2 Bipolar disorder, current episode manic severe with psychotic features; Z85.41 Personal history of malignant neoplasm of cervix uteri; Z85.3 Personal history of malignant neoplasm of breast; F17.200 Nicotine dependence, unspecified, uncomplicated
CPT/HCPCS: 80048; 80164; 85027; 90837; 99281; 99285; G0480

== ENCOUNTER 2017-10-11 17:50 | Emergency (ER) | payer OTHER ==
[~2017-10-11] VITALS: Ht 160 cm; Wt 86.4 kg
[2017-10-11 19:12] VITALS: BP 134/101
== END 2017-10-11 19:14 | disposition home or self-care (01) ==
LOC: EME 17:50
DX: M79.671 Pain in right foot (principal); M79.672 Pain in left foot; F20.9 Schizophrenia, unspecified; J45.909 Unspecified asthma, uncomplicated; I10 Essential (primary) hypertension; F31.9 Bipolar disorder, unspecified; F17.200 Nicotine dependence, unspecified, uncomplicated
CPT/HCPCS: 99281; 99283

== ENCOUNTER 2017-10-21 07:46 | Emergency (ER) | payer OTHER ==
[~2017-10-21] VITALS: Ht 160 cm; Wt 87.8 kg
[2017-10-21 08:14] LABS: ADD MIUA? NO; BILIRUBIN NEGATIVE; BLOOD NEGATIVE; COLOR STRAW ((YELLOW)); GLUCOSE (STRIP) NEGATIVE; KETONES NEGATIVE; LEUKOCYTES NEGATIVE; NITRITE NEGATIVE; PROTEIN (STRIP) NEGATIVE; SPECIFIC GRAVITY 1.004 (1.000-1.030); UCUL ADDED? NO; UROBILINOGEN 0.2 MG/DL (0.2-1.0)
[2017-10-21 08:19] LABS: INTERNAL CONTROL VALID? YES
[2017-10-21] MEDS ORDERED: PYRIDIUM200 MG PO (09:01)
[2017-10-21 09:18] VITALS: BP 138/95
== END 2017-10-21 09:20 | disposition home or self-care (01) ==
LOC: EME 07:46
DX: F22 Delusional disorders (principal); R39.15 Urgency of urination; I10 Essential (primary) hypertension; J45.909 Unspecified asthma, uncomplicated; F31.9 Bipolar disorder, unspecified; Z88.6 Allergy status to analgesic agent; Z91.040 Latex allergy status; F17.200 Nicotine dependence, unspecified, uncomplicated
CPT/HCPCS: 81003; 84703; 99281; 99283

== ENCOUNTER 2017-10-30 19:40 | Emergency (ER) | payer OTHER ==
[~2017-10-30] VITALS: Ht 160 cm; Wt 87.8 kg
[~2017-10-30 19:40] MED LIST changes: +PYRIDIUM200 MG PO
[2017-10-30 19:52] VITALS: BP 127/96
== END 2017-10-30 20:11 | disposition home or self-care (01) ==
LOC: EME 19:40
DX: J06.9 Acute upper respiratory infection, unspecified (principal); R45.4 Irritability and anger; F17.200 Nicotine dependence, unspecified, uncomplicated
CPT/HCPCS: 99281; 99283

== ENCOUNTER 2017-11-02 10:22 | Emergency (ER) | payer OTHER ==
[~2017-11-02] VITALS: Ht 160 cm; Wt 87.9 kg
[2017-11-02 11:36] LABS: BASOPHIL COUNT 0.1 K/uL (0-0.1); EOSINOPHIL (%) 2.4 % (0-5); EOSINOPHIL COUNT 0.2 K/uL (0-0.3); HEMATOCRIT 42.4 % (36.0-46.0); IMMATURE GRANULOCYTE (%) 0.4 % (0.0-0.7); INSTRUMENT ABS NEUTROPHIL CT 5.2 K/uL; MCH 31.4 PG (29.0-34.0); MCV 92.4 FL (83-99); MEAN PLAT.VOLUME 9.2 uM^3 (9.5-12.4); MONOCYTE COUNT 0.6 K/uL (0-0.8); NEUTROPHIL (%) 64.8 % (45-76); NEUTROPHIL COUNT 5.2 K/uL (1.8-6.4); PLATELET COUNT 286 K/uL (156-360); RBC DIS.WIDTH-CV 12.6 % (11.8-14.6); RBC DIS.WIDTH-SD 42.8 % (39-53); RED BLOOD COUNT 4.59 M/uL (3.80-5.20)
[2017-11-02 11:51] LABS: CHLORIDE 109 mEq/L (99-109); POTASSIUM 4.7 mEq/L (3.7-5.4); SODIUM 139 mEq/L (136-147)
[2017-11-02 11:52] LABS: GLUCOSE 96 mg/dL (70-99)
[2017-11-02 11:54] LABS: ANION GAP 7 MEQ/L (2-14)
[2017-11-02 11:56] LABS: GFR ESTIMATE (CALCULATED) > 59 mL/min/
[2017-11-02 11:57] LABS: TROP-I INTERPRETATION NEGATIVE; TROPONIN-I < 0.01 ng/mL (0.0-0.30); UREA NITROGEN (BUN) 17 mg/dL (9-23)
[2017-11-02 12:05] LABS: QUANTITATIVE HCG < 4.0 MIU/ML
[2017-11-02 12:53] VITALS: BP 129/105
== END 2017-11-02 13:01 | disposition home or self-care (01) ==
LOC: EME 10:22
PROVIDERS: Emergency Medicine
DX: F41.9 Anxiety disorder, unspecified (principal); J45.909 Unspecified asthma, uncomplicated; I10 Essential (primary) hypertension; F17.200 Nicotine dependence, unspecified, uncomplicated; Z88.6 Allergy status to analgesic agent; Z91.040 Latex allergy status
CPT/HCPCS: 71010; 80048; 84484; 84702; 85025; 93005; 99281; 99284

== ENCOUNTER 2017-11-03 17:27 | Inpatient (IN) | payer OTHER ==
[~2017-11-03] VITALS: Ht 160 cm; Wt 85.5 kg
[2017-11-03 19:15] LABS: AMPHETAMINE NEGATIVE (500 ng/mL); BARBITURATES NEGATIVE (200 ng/mL); BENZODIAZEPINES NEGATIVE (150 ng/mL); COCAINE NEGATIVE (150 ng/mL); INTERNAL CONTROLS VALID? YES; METHADONE NEGATIVE (200 ng/mL); METHAMPHETAMINE NEGATIVE (500 ng/mL); OPIATES (MORPHINE) NEGATIVE (100 ng/mL); OXYCODONE NEGATIVE (100 ng/mL); PHENCYCLIDINE NEGATIVE (25 ng/mL); PROPOXYPHENE NEGATIVE (300 ng/mL); THC CANNABINOIDS NEGATIVE (50 ng/mL); TRICYCLIC ANTIDEPRESSANTS NEGATIVE (300 ng/mL)
[2017-11-03 19:18] LABS: HEMATOCRIT 45.3 % (36.0-46.0); MCH 31.2 PG (29.0-34.0); MCV 91.9 FL (83-99); MEAN PLAT.VOLUME 8.9 uM^3 (9.5-12.4); PLATELET COUNT 290 K/uL (156-360); RBC DIS.WIDTH-CV 12.3 % (11.8-14.6); RBC DIS.WIDTH-SD 41.9 % (39-53); RED BLOOD COUNT 4.93 M/uL (3.80-5.20); WHITE BLOOD COUNT 9.1 K/uL (4.1-10.2)
[2017-11-03 19:28] LABS: CHLORIDE 104 mEq/L (99-109); POTASSIUM 4.1 mEq/L (3.7-5.4); SODIUM 139 mEq/L (136-147)
[2017-11-03 19:30] LABS: GLUCOSE 118 mg/dL (70-99)
[2017-11-03 19:31] LABS: ANION GAP 10 MEQ/L (2-14)
[2017-11-03 19:33] LABS: SERUM ETHYL ALCOHOL < 10 mg/dL
[2017-11-03 19:34] LABS: GFR ESTIMATE (CALCULATED) > 59 mL/min/
[2017-11-03 19:35] LABS: UREA NITROGEN (BUN) 16 mg/dL (9-23)
[2017-11-04 00:04] VITALS: BP 139/95
[2017-11-04 07:25] VITALS: BP 145/83
[2017-11-04] MEDS ORDERED: TEGRETOL-XR,CA200 MG PO (08:56)
[2017-11-04] MEDS ORDERED: TEGRETOL-XR,CA100 MG PO (08:57)
[2017-11-04] MEDS ORDERED: MOTRIN800 MG PO (09:09)
[2017-11-04] MEDS ORDERED: KLONOPIN1 MG PO (09:10)
[2017-11-04] MEDS ORDERED: FLONASE16 G1 BOTH NARES (09:11)
[2017-11-04] MEDS ORDERED: GEODON40 MG PO (09:11)
[2017-11-04] MEDS ORDERED: GEODON80 MG PO (09:11)
[2017-11-04] MEDS ORDERED: HALDOL DEC100 MG/1 M IM (09:14)
[2017-11-04] MEDS ORDERED: ADVAIR 250/501 DISK IH (09:16)
[2017-11-04] MEDS ORDERED: VENTOLIN HFA18 GM IH (09:17)
[2017-11-04] MEDS ORDERED: NICORETTE2 M1 BC (09:18)
[2017-11-04] MEDS ORDERED: DEPAKOTE ER500 MG PO (09:21)
[2017-11-04 13:07] VITALS: BP 134/97
[2017-11-04 15:48] VITALS: BP 146/92
[2017-11-05 07:46] VITALS: BP 128/84
[2017-11-05 15:24] VITALS: BP 143/84
[2017-11-06 07:53] VITALS: BP 155/86
[2017-11-06 13:02] VITALS: BP 142/92
[2017-11-06 16:13] VITALS: BP 140/93
[2017-11-07 07:38] VITALS: BP 130/86
[2017-11-07 15:39] VITALS: BP 151/87
[2017-11-07 18:14] VITALS: BP 132/78
[2017-11-08 07:45] VITALS: BP 143/70
[2017-11-08 12:02] VITALS: BP 153/93
[2017-11-08 13:51] VITALS: BP 159/90
[2017-11-08 15:13] VITALS: BP 147/91
[2017-11-09 07:37] VITALS: BP 144/79
[2017-11-09 16:56] VITALS: BP 158/88
[2017-11-09 21:25] VITALS: BP 138/91
[2017-11-10 07:30] VITALS: BP 161/97
[2017-11-10 15:30] VITALS: BP 183/108
[2017-11-10 18:50] VITALS: BP 147/91
[2017-11-11 07:41] VITALS: BP 152/87
[2017-11-11 15:49] VITALS: BP 155/91
[2017-11-11 19:15] VITALS: BP 148/92
[2017-11-12 07:02] VITALS: BP 150/99
[2017-11-12 12:00] VITALS: BP 144/72
[2017-11-12 15:36] VITALS: BP 158/98
[2017-11-13 07:49] VITALS: BP 130/84
[2017-11-13 15:23] VITALS: BP 166/104
[2017-11-14 07:49] VITALS: BP 136/97
[2017-11-14] MEDS ORDERED: GEODON60 MG PO (09:52)
[2017-11-14] MEDS ORDERED: CARBAMAZEPINE200 M1 PO (09:52)
[2017-11-14] MEDS ORDERED: HALDOL DEC100 MG/1 M IM (09:55)
== END 2017-11-14 10:34 | disposition home or self-care (01) | DRG 885 ==
LOC: EME 17:27 → 1WEST 19:04 → EDOF 19:04 → ENRESERV 21:44 → 1WEST 23:47
PROVIDERS: Emergency Medicine
DX: F31.2 Bipolar disorder, current episode manic severe with psychotic features (principal); J45.909 Unspecified asthma, uncomplicated; F17.200 Nicotine dependence, unspecified, uncomplicated; Z91.19 Patient's noncompliance with other medical treatment and regimen; G47.00 Insomnia, unspecified; I10 Essential (primary) hypertension
CPT/HCPCS: 71010; 80048; 84484; 84702; 85025; 85027; 90837; 93005; 94640; 94640 76; 97150 GO; 97166 GO; 99202; 99281; 99284; G0480; J1631

== ENCOUNTER 2017-11-16 16:00 | Inpatient (IN) | payer OTHER ==
[~2017-11-16] VITALS: Ht 167.6 cm; Wt 87.3 kg
[~2017-11-16 16:00] MED LIST changes: +ADVAIR 250/501 DISK IH; +CARBAMAZEPINE200 M1 PO; +NICORETTE2 M1 BC; +TEGRETOL-XR,CA100 MG PO; +TEGRETOL-XR,CA200 MG PO
[2017-11-16 17:21] LABS: HEMATOCRIT 42.2 % (36.0-46.0); HEMOGLOBIN 14.6 G/DL (11.9-15.5); MCH 31.7 PG (29.0-34.0); MCHC 34.6 G/DL (30.0-36.0); MCV 91.5 FL (83-99); PLATELET COUNT 285 K/uL (156-360); RBC DIS.WIDTH-CV 12.2 % (11.8-14.6); RBC DIS.WIDTH-SD 40.9 % (39-53); RED BLOOD COUNT 4.61 M/uL (3.80-5.20)
[2017-11-16 17:28] LABS: AMPHETAMINE NEGATIVE (500 ng/mL); BARBITURATES NEGATIVE (200 ng/mL); BENZODIAZEPINES NEGATIVE (150 ng/mL); BUPRENORPHINE NEGATIVE (10 ng/mL); COCAINE NEGATIVE (150 ng/mL); METHADONE NEGATIVE (200 ng/mL); METHAMPHETAMINE NEGATIVE (500 ng/mL); OPIATES (MORPHINE) NEGATIVE (100 ng/mL); OXYCODONE NEGATIVE (100 ng/mL); PHENCYCLIDINE NEGATIVE (25 ng/mL); PROPOXYPHENE NEGATIVE (300 ng/mL); THC CANNABINOIDS NEGATIVE (50 ng/mL); TRICYCLIC ANTIDEPRESSANTS NEGATIVE (300 ng/mL)
[2017-11-16 17:32] LABS: CHLORIDE 107 mEq/L (99-109); POTASSIUM 4.3 mEq/L (3.7-5.4); SODIUM 137 mEq/L (136-147)
[2017-11-16 17:34] LABS: GLUCOSE 89 mg/dL (70-99)
[2017-11-16 17:35] LABS: TOTAL PROTEIN 6.9 g/dL (6.4-8.3)
[2017-11-16 17:36] LABS: TOTAL BILIRUBIN 0.3 mg/dL (0.0-1.0)
[2017-11-16 17:37] LABS: SERUM ETHYL ALCOHOL < 10 mg/dL
[2017-11-16 17:38] LABS: ALKALINE PHOSPHATASE 109 IU/L (3-129); APPEARANCE CLEAR ((CLEAR)); BILIRUBIN NEGATIVE; BLOOD LARGE; COLOR STRAW ((YELLOW)); GFR ESTIMATE (CALCULATED) > 59 mL/min/; GLUCOSE (STRIP) NEGATIVE; KETONES NEGATIVE; LEUKOCYTES NEGATIVE; NITRITE NEGATIVE; PROTEIN (STRIP) NEGATIVE; SPECIFIC GRAVITY 1.004 (1.000-1.030); UROBILINOGEN 0.2 MG/DL (0.2-1.0)
[2017-11-16 17:39] LABS: UREA NITROGEN (BUN) 16 mg/dL (9-23)
[2017-11-16 17:40] LABS: AST (GOT) 23 IU/L (2-34)
[2017-11-16 17:41] LABS: ALT (GPT) 22 IU/L (3-49)
[2017-11-16 17:43] LABS: BACTERIA RARE /HPF; EPITHELIAL CELLS 1+ /HPF; MUCUS NONE SEEN /LPF; RED BLOOD CELLS 0-5 /HPF (0-5); WHITE BLOOD CELLS 0-5 /HPF (0-5)
[2017-11-16 17:46] LABS: QUANTITATIVE HCG < 4.0 MIU/ML
[2017-11-16 21:00] VITALS: BP 117/74
[2017-11-16 21:03] VITALS: BP 117/74
[2017-11-17 07:57] VITALS: BP 122/74
[2017-11-17 15:41] VITALS: BP 159/97
[2017-11-18 10:16] VITALS: BP 121/75
[2017-11-18 15:24] VITALS: BP 130/87
[2017-11-19 07:43] VITALS: BP 155/89
[2017-11-19 12:54] VITALS: BP 127/75
[2017-11-19 15:18] VITALS: BP 157/69
[2017-11-20 07:38] VITALS: BP 134/74
[2017-11-20 15:52] VITALS: BP 137/82
[2017-11-21 08:10] VITALS: BP 158/98
[2017-11-21 15:25] VITALS: BP 161/89
[2017-11-21 17:49] VITALS: BP 160/99
[2017-11-21 18:28] VITALS: BP 140/97
[2017-11-22 07:25] VITALS: BP 132/91
[2017-11-22 15:37] VITALS: BP 143/85
[2017-11-23 07:51] VITALS: BP 172/98
[2017-11-23 10:03] VITALS: BP 163/98
[2017-11-23 15:23] VITALS: BP 142/89
[2017-11-24 07:34] VITALS: BP 169/84
[2017-11-24 11:20] VITALS: BP 134/74
[2017-11-24 15:32] VITALS: BP 138/88
[2017-11-25 07:51] VITALS: BP 142/81
[2017-11-25 16:00] VITALS: BP 135/93
[2017-11-26 09:26] VITALS: BP 133/82
[2017-11-26 16:34] VITALS: BP 158/90
[2017-11-27 07:48] VITALS: BP 132/80
[2017-11-27] MEDS ORDERED: DIVALPROEX SOD500 M1 PO (10:51)
[2017-11-27] MEDS ORDERED: OLANZAPINE5 MG PO (10:51)
== END 2017-11-27 14:22 | disposition home or self-care (01) | DRG 885 ==
LOC: EME 16:00 → EDOF 18:18 → 1WEST 18:18 → ENRESERV 20:53 → 1WEST 20:54 → UNDODEPER 22:03 → 1WEST 11-22 16:30
PROVIDERS: Emergency Medicine
DX: F31.2 Bipolar disorder, current episode manic severe with psychotic features (principal); Z91.14 Patient's other noncompliance with medication regimen; F60.81 Narcissistic personality disorder; F17.200 Nicotine dependence, unspecified, uncomplicated; I10 Essential (primary) hypertension
CPT/HCPCS: 80053; 80156; 81003; 84702; 85027; 90837; 94640; 97150 GO; 97166 GO; 99202; 99281; 99285; G0480; J1630; J2060

== ENCOUNTER 2017-12-22 14:47 | Emergency (ER) | payer OTHER ==
[~2017-12-22] VITALS: Ht 172.7 cm; Wt 93.6 kg
[2017-12-22 14:47] VITALS: BP 141/83
[~2017-12-22 14:47] MED LIST changes: +OLANZAPINE5 MG PO
[2017-12-22 16:33] LABS: HEMATOCRIT 43.7 % (36.0-46.0); HEMOGLOBIN 14.9 G/DL (11.9-15.5); MCH 31.1 PG (29.0-34.0); MCHC 34.1 G/DL (30.0-36.0); MCV 91.2 FL (83-99); PLATELET COUNT 284 K/uL (156-360); RBC DIS.WIDTH-CV 12.6 % (11.8-14.6); RBC DIS.WIDTH-SD 41.6 % (39-53); RED BLOOD COUNT 4.79 M/uL (3.80-5.20); WHITE BLOOD COUNT 8.2 K/uL (4.1-10.2)
[2017-12-22 16:46] LABS: ALBUMIN 4.2 g/dL (3.2-4.8); CHLORIDE 106 mEq/L (99-109); POTASSIUM 4.3 mEq/L (3.7-5.4); SODIUM 139 mEq/L (136-147)
[2017-12-22 16:48] LABS: GLUCOSE 92 mg/dL (70-99); TOTAL PROTEIN 6.7 g/dL (6.4-8.3)
[2017-12-22 16:50] LABS: TOTAL BILIRUBIN 0.4 mg/dL (0.0-1.0)
[2017-12-22 16:52] LABS: ALKALINE PHOSPHATASE 97 IU/L (3-129); CREATININE 0.8 mg/dL (0.6-1.3); GFR ESTIMATE (CALCULATED) > 59 mL/min/
[2017-12-22 16:53] LABS: UREA NITROGEN (BUN) 6 mg/dL (9-23)
[2017-12-22 16:54] LABS: AST (GOT) 12 IU/L (2-34)
[2017-12-22 16:55] LABS: ALT (GPT) 15 IU/L (3-49)
[2017-12-22 17:02] LABS: QUANTITATIVE HCG < 4.0 MIU/ML
[2017-12-22 17:41] LABS: VALPROIC ACID (DEPAKOTE) 29.3 MCG/ML (50-100)
== END 2017-12-22 18:23 | disposition home or self-care (01) ==
LOC: EME 14:47
PROVIDERS: Emergency Medicine
DX: N93.9 Abnormal uterine and vaginal bleeding, unspecified (principal); I10 Essential (primary) hypertension; F17.200 Nicotine dependence, unspecified, uncomplicated; Z88.6 Allergy status to analgesic agent
CPT/HCPCS: 80053; 80164; 84702; 85027

== ENCOUNTER 2018-02-06 11:29 | Inpatient (IN) | payer OTHER ==
[~2018-02-06] VITALS: Ht 160 cm; Wt 84.4 kg
[2018-02-06] MEDS ORDERED: METOPROLOL SUCC50 MG PO (13:39)
[2018-02-06] MEDS ORDERED: XARELTO20 MG PO (13:39)
[2018-02-06 13:41] VITALS: BP 131/85
[2018-02-06 13:55] VITALS: BP 131/85
[2018-02-06 22:24] LABS: APPEARANCE CLEAR ((CLEAR)); BILIRUBIN NEGATIVE; BLOOD MODERATE; COLOR YELLOW ((YELLOW)); GLUCOSE (STRIP) NEGATIVE; KETONES NEGATIVE; LEUKOCYTES NEGATIVE; NITRITE NEGATIVE; PROTEIN (STRIP) NEGATIVE; SPECIFIC GRAVITY 1.006 (1.000-1.030); UROBILINOGEN 0.2 MG/DL (0.2-1.0)
[2018-02-06 22:39] LABS: BACTERIA RARE /HPF; EPITHELIAL CELLS RARE /HPF; MUCUS TRACE /LPF; RED BLOOD CELLS 0-5 /HPF (0-5); WHITE BLOOD CELLS 0-5 /HPF (0-5)
[2018-02-06 22:52] LABS: AMPHETAMINE NEGATIVE (500 ng/mL); BARBITURATES NEGATIVE (200 ng/mL); BENZODIAZEPINES PRESUMPTIVE POSITIVE (150 ng/mL); BUPRENORPHINE NEGATIVE (10 ng/mL); COCAINE NEGATIVE (150 ng/mL); METHADONE NEGATIVE (200 ng/mL); METHAMPHETAMINE NEGATIVE (500 ng/mL); OPIATES (MORPHINE) NEGATIVE (100 ng/mL); OXYCODONE NEGATIVE (100 ng/mL); PHENCYCLIDINE NEGATIVE (25 ng/mL); PROPOXYPHENE NEGATIVE (300 ng/mL); THC CANNABINOIDS NEGATIVE (50 ng/mL); TRICYCLIC ANTIDEPRESSANTS NEGATIVE (300 ng/mL)
[2018-02-06 23:39] LABS: BENZODIAZEPINES, URINE SCREEN Negative (200 ng/mL)
[2018-02-07 07:57] VITALS: BP 147/66
[2018-02-07 08:16] LABS: BASOPHIL (%) 0.9 % (0-1); BASOPHIL COUNT 0.1 K/uL (0-0.1); EOSINOPHIL (%) 2.4 % (0-5); EOSINOPHIL COUNT 0.2 K/uL (0-0.3); HEMATOCRIT 45.3 % (36.0-46.0); HEMOGLOBIN 14.9 G/DL (11.9-15.5); IMMATURE GRANULOCYTE (%) 0.3 % (0.0-0.7); LYMPHOCYTE (%) 30.6 % (15-42); LYMPHOCYTE COUNT 2.4 K/uL (1.0-2.8); MCH 30.4 PG (29.0-34.0); MCHC 32.9 G/DL (30.0-36.0); MCV 92.4 FL (83-99); MONOCYTE (%) 10.4 % (3-12); MONOCYTE COUNT 0.8 K/uL (0-0.8); NEUTROPHIL (%) 55.4 % (45-76); NEUTROPHIL COUNT 4.4 K/uL (1.8-6.4); PLATELET COUNT 362 K/uL (156-360); RBC DIS.WIDTH-CV 13.2 % (11.8-14.6); RBC DIS.WIDTH-SD 44.8 % (39-53); WHITE BLOOD COUNT 7.9 K/uL (4.1-10.2)
[2018-02-07 08:53] LABS: CHLORIDE 107 MEQ/L (99-109); GFR ESTIMATE (CALCULATED) > 59 mL/min/; GLUCOSE 111 mg/dL (70-99); POTASSIUM 4.9 MEQ/L (3.7-5.4); SERUM ETHYL ALCOHOL < 10 mg/dL; SODIUM 140 MEQ/L (136-147); UREA NITROGEN (BUN) 15 mg/dL (9-23)
[2018-02-07 16:23] VITALS: BP 119/65
[2018-02-08 07:56] VITALS: BP 117/70
[2018-02-08 15:59] VITALS: BP 147/68
[2018-02-09 08:25] VITALS: BP 129/73
[2018-02-09 09:32] VITALS: BP 129/73
[2018-02-09 15:46] VITALS: BP 151/94
[2018-02-10 08:18] VITALS: BP 131/67
[2018-02-11 08:13] VITALS: BP 142/87
[2018-02-11 15:40] VITALS: BP 126/76
[2018-02-12 07:57] VITALS: BP 137/80
[2018-02-12 15:43] VITALS: BP 149/69
[2018-02-13 07:43] VITALS: BP 149/74
[2018-02-13 15:48] VITALS: BP 130/75
[2018-02-14 15:44] VITALS: BP 133/85
[2018-02-15 09:39] VITALS: BP 143/76
[2018-02-15 16:14] VITALS: BP 137/82
[2018-02-16 09:24] VITALS: BP 144/75
[2018-02-17 07:51] VITALS: BP 119/62
[2018-02-18 07:53] VITALS: BP 108/60
[2018-02-19 15:50] VITALS: BP 124/74
[2018-02-20 08:16] VITALS: BP 114/69
[2018-02-20 15:13] VITALS: BP 125/76
[2018-02-21 07:53] VITALS: BP 126/77
[2018-02-21 15:52] VITALS: BP 126/69
[2018-02-22 08:11] VITALS: BP 117/60
[2018-02-22 15:33] VITALS: BP 117/64
[2018-02-24 07:48] VITALS: BP 124/64
[2018-02-24 15:34] VITALS: BP 130/78
[2018-02-25 08:01] VITALS: BP 131/85
[2018-02-25 16:14] VITALS: BP 114/67
[2018-02-26 08:06] VITALS: BP 125/86
[2018-02-26] MEDS ORDERED: FLUPHENAZINE HC10 MG PO (09:17)
[2018-02-26] MEDS ORDERED: FLONASE16 G1 BOTH NARES (09:17)
[2018-02-26] MEDS ORDERED: OLANZAPINE15 MG PO (09:17)
[2018-02-26] MEDS ORDERED: CLONAZEPAM1 MG PO (09:17)
[2018-02-26] MEDS ORDERED: ADVAIR 250/501 DISK IH (09:17)
[2018-02-26] MEDS ORDERED: METOPROLOL SUCC50 MG PO (09:17)
== END 2018-02-26 10:55 | disposition home or self-care (01) | DRG 885 ==
LOC: EME 11:29 → EDOF 11:59 → 1WEST 11:59 → ENRESERV 13:24 → 1WEST 13:24
PROVIDERS: Emergency Medicine
DX: F31.2 Bipolar disorder, current episode manic severe with psychotic features (principal); Z91.19 Patient's noncompliance with other medical treatment and regimen; I10 Essential (primary) hypertension; J45.909 Unspecified asthma, uncomplicated; F17.200 Nicotine dependence, unspecified, uncomplicated
CPT/HCPCS: 80048; 80164; 81003; 84999; 85025; 90837; 94640; 94640 76; 97150 GO; 97166 GO; 97168 GO; 99202; 99281; 99285; G0480; J1630; J2060; J2680

== ENCOUNTER 2018-04-26 19:54 | Emergency (ER) | payer OTHER ==
[~2018-04-26] VITALS: Ht 160 cm; Wt 79.5 kg
[~2018-04-26 19:54] MED LIST changes: +FLUPHENAZINE HC10 MG PO; +METOPROLOL SUCC50 MG PO; +OLANZAPINE15 MG PO
[2018-04-26 21:37] VITALS: BP 123/106
== END 2018-04-26 21:38 | disposition home or self-care (01) ==
LOC: EME 19:54 → EXP 19:54
DX: S80.12XA Contusion of left lower leg, initial encounter (principal); W18.40XA Slipping, tripping and stumbling without falling, unspecified, initial encounter; W22.8XXA Striking against or struck by other objects, initial encounter; Y92.003 Bedroom of unspecified non-institutional (private) residence as the place of occurrence of the external cause; F43.10 Post-traumatic stress disorder, unspecified; F41.0 Panic disorder [episodic paroxysmal anxiety]; Z88.6 Allergy status to analgesic agent; Z91.040 Latex allergy status
CPT/HCPCS: 73590; 73610; 99281; 99282